=== PATIENT | male | born 1980 | race Caucasian/White ===

== ENCOUNTER → 2019-01-19 | Outpatient (CLI) | payer OTHER ==
--- NOTE | 2019-01-19 10:57 | REP ---
Clinical: Scrotal pain. Technique: Real time stephens scale and color Doppler evaluation using linear high frequency transducer. Findings: The bilateral testicles and epididymi are normal in contour, size, echogenicity, and vascularity without evidence for intratesticular mass lesion, infectious/inflammatory process, or torsion. No significant hydroceles are identified. Very mild early varicoceles are suggested bilaterally measuring up to 3 mm on the right with Valsalva and 4 mm on the left with Valsalva. No hydroceles. Right testicle measures 4.6 x 2.3 x 3.2 cm. Left testicle measures 4.5 x 2.1 x 3.0 cm. Impression: Mild early varicoceles. Electronically Signed by Venancio Lopez MD 01/19/2019 10:49 A
== END ==
LOC: M RAD 09:58
PROVIDERS: ATTEND Nurse Practitioner Women's Health
DX: N50.812 Left testicular pain (principal); I86.1 Scrotal varices